=== PATIENT | female | born 1960 | race Caucasian/White ===

== ENCOUNTER 2018-02-15 17:18 | Emergency (ER) | payer BC ==
--- OUTSIDE RECORDS SUMMARY | 2018-02-15 17:21 | XMS REPORT | Summary of Care ---
Author Author [facility] Organization [facility] Address Unknown Phone Unavailable Encounter HQ Isaiahr_joshtray(MAXINE) [id number] Date(s): 12/23/16 - 01/21/17 [facility] Discharge Disposition: Home or Self Care Attending Physician: Wesly Rinaldi MD Vital Signs No data available for this section Problem List No data available for this section Allergies, Adverse Reactions, Alerts No data available for this section Medications No data available for this section Results No data available for this section Immunizations No data available for this section Procedures No data available for this section Social History No data available for this section Assessment and Plan No data available for this section
--- OUTSIDE RECORDS SUMMARY | 2018-02-15 17:21 | XMS REPORT | Summary of Care ---
Author Author [facility] [place] Organization [facility] [place] Address Unknown Phone Unavailable Encounter HQ Encntr_alitray(FIN) [id number] Date(s): 05/01/16 - 05/01/16 [facility] - [place] [address] [place] [phone] Discharge Disposition: Home or Self Care Attending Physician: Denice Landeros MD Vital Signs No data available for [...]
--- OUTSIDE RECORDS SUMMARY | 2018-02-15 17:21 | XMS REPORT | Summary of Care ---
Author Author Marck Bucio, Kerri Organization Unknown Address Unknown Phone Unavailable Care Team Providers Care Retirement Benefits Specialist Name Role Phone ANDRES VILLANUEVA M.D. Unavailable Unavailable TANVI PATEL M.D. 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 Quantity: 50 ANDRES VILLANUEVA M.D. * Start : 12-Nov-2016 Active Diclofenac Sodium 1 % Transdermal Gel APPLY TO LOWER EXTREMITIES, 4 GM OF GEL TO AFFECTED AREA 4 TIMES DAILY. DO NOT APPLY MORE THAN 16 GM DAILY TO ANY ONE AFFECTED JOINT. * Quantity: 3 Refills: 1 ANDRES VILLANUEVA M.D. * Start : 01-Dec-2016 Active 100 GM Tube Diclofenac Sodium 1 % Transdermal Gel APPLY TO LOWER EXTREMITIES, 4 GM OF GEL TO AFFECTED AREA 4 TIMES DAILY. DO NOT APPLY MORE THAN 16 GM DAILY TO ANY ONE AFFECTED JOINT. * Quantity: 1 Refills: 2 TANVI PATEL M.D. * Start : 18-Aug-2017 Active 100 GM Tube Aspirin 81 MG Oral Tablet Delayed Release 1 TABLET PO BID FOR 2 WEEEKS AFTER SURGERY; QTY:28 X TABLET DELAYED RELEASE; QTY :28 Tablet Delayed Release * Quantity: 28 Refills: 0 TANVI PATEL M.D. * Start : 08-Feb-2018 Active Gabapentin 100 MG Oral Capsule TAKE 1 CAPSULE 3 TIMES DAILY. * Quantity: 15 Refills: 0 JORGE Cheung, TANVI * Start : 08-Feb-2018 Active Trezix 320.5-30-16 MG Oral Capsule Trezix 320.5-30-16 MG Oral Capsule take 1-2 capsules every 4-6 hours as needed f or pain * Quantity: 90 Refills: 0 JORGE Cheung, TANVI * Start : 08-Feb-2018 Active Allergies and Adverse Reactions Name Dates Details No Known Drug Allergies (Allergy) Status: Active Procedures Procedure Dates Details MR Knee wo contrast 70457 Date: 20-Jan-2018 Immunization Name Dates Details Immunizations not documented Social History Name Dates Details Unknown if ever smoked Vital Signs Date Test Result Details No Known Vitals to report Results Date Description Value Details Results not documented Plan of Care Name Dates Details Planned Observations Planned Goals not documented Planned Encounters Physical Therapy Referral Appointment; TANVI PATEL M.D. On: 10-Feb-2018 14:00 Interventions Provided Medication Changes* Aspirin 81 MG Oral Tablet Delayed Release - Start * Gabapentin 100 MG Oral Capsule - Start * Trezix 320.5-30-16 MG Oral Capsule - Start Instructions Name Dates Details Instructions not documented Encounters Appointment; ANDRES VILLANUEVA M.D. Encounter Diagnosis: Problem not documented On: 12-Nov-2016 7:30 Appointment; ANDRES VILLANUEVA M.D. Encounter Diagnosis: Problem not documented On: 09-Jan-2017 13:15 Appointment; ANDERS VILLANUEVA M.D. Encounter Diagnosis: Problem not documented On: 23-Jan-2017 7:00 Appointment; ANDRES VILLANUEVA M.D. Encounter Diagnosis: Problem not documented On: 28-Jan-2017 7:00 Appointment; ANDRES VILLANUEVA M.D. Encounter Diagnosis: Problem not documented On: 04-Feb-2017 7:00 Appointment; ANDRES VILLANUEVA M.D. Encounter Diagnosis: Problem not documented On: 22-Jul-2017 7:00 Appointment; ANDRES VILLANUEVA M.D. Encounter Diagnosis: Problem not documented On: 12-Aug-2017 7:00 Appointment; TANVI PATEL M.D. Encounter Diagnosis: Problem not documented On: 18-Aug-2017 13:30 Appointment; TANVI PATEL M.D. Encounter Diagnosis: Problem not documented On: 28-Aug-2017 8:30 Appointment; TANVI PATEL M.D. Encounter Diagnosis: Problem not documented On: 31-Aug-2017 12:30 Appointment; TANVI PATEL M.D. Encounter Diagnosis: Problem not documented On: 07-Sep-2017 12:30 Appointment; TANVI PATEL M.D. Encounter Diagnosis: Problem not documented On: 15-Sep-2017 12:30 Appointment; TANVI PATEL M.D. Encounter Diagnosis: Problem not documented On: 22-Sep-2017 12:30 Appointment; SURG, NURSE Encounter Diagnosis: Problem not documented On: 25-Sep-2017 8:00 Appointment; TANVI PATEL M.D. Encounter Diagnosis: Problem not documented On: 10-Nov-2017 14:15 Appointment; TANVI PATEL M.D. Encounter Diagnosis: Problem not documented On: 10-Feb-2018 14:00
--- OUTSIDE RECORDS SUMMARY | 2018-02-15 17:21 | XMS REPORT | Continuity of Care Document ---
Author Author Rica baltazar Organization Interface Address Unknown Phone Unavailable Problems Problem Status Onset Date Classification Date Reported Comments Source RIGHT KNEE Active 02/09/2018 [facility] ACQUIRED VARUS DEFORMITY RIGHT KNEE, CHR Active 02/01/2018 [facility] M21.161, M25.561 CHRONIC PAIN OF RIGHT K Active 01/19/2018 [facility] M21.161, M25.561 Active 01/19/2018 [facility] M25.561 - PAIN IN RIGHT KNEE Active 07/28/2017 [facility] BILATERAL KNEE OA Active 11/12/2016 [facility] BILATREAL KNEE OA Active 10/12/2016 [facility] M25.562 - PAIN IN LEFT KNEE Active 08/15/2015 [facility] [place] Medications Medication Details Route Status Patient Instructions Ordering Provider Order Date Source Allergies, Adverse Reactions, Alerts Substance Category Reaction Severity Reaction type Status Date Reported Comments Source Immunizations Immunization Date Given Site Status Last Updated Comments Source Results Order Name Results Value Reference Range Date Interpretation Comments Source Knee 1-2 Views unilateral DX Knee 1-2 Views unilateral DX EXAM: XR RIGHT KNEE 2 VIEWS DATE: 02/10/2018 13:02 DIRECTOR OF HUMAN RESOURCES INDICATION: Pain, Trauma - post op TKA COMPARISON: None available TECHNIQUE: Right knee - 2 views FINDINGS: Satisfactory appearance of total right knee arthroplasty with patellar resurfacing noted. No periprosthetic lucency or hardware failure identified. No fracture, periosteal reaction, or erosions identified. Joint alignment is normal. Expected postoperative soft tissue edema and air present anteriorly. Air and fluid present within the suprapatella bursa. Anterior midline skin closure laith noted. IMPRESSION: Satisfactory immediate postoperative appearance of total right knee arthroplasty. 02/10/2018 - - Read by: Albert Botello MD Dictated Date/time: 02/10/18 15:54 Electronically Signed by: Albert Botello MD 02/10/18 15:55 [facility]AL [facility]PORT [facility] DX Bone length scanogram DX EXAM: X-RAY BONE LENGTH SCANOGRAM DATED 01/25/2018 INDICATION: Right knee pain. COMPARISON: Knee x-ray dated 08/16/2015 TECHNIQUE: Frontal AP views of the right femur and lower leg are provided for review. FINDINGS: Minimal degenerative changes involving the inferior medial portion of the right hip joint. Medial knee joint space narrowing. No acute osseous injury. Surrounding soft tissues demonstrate no discrete abnormality. IMPRESSION: Degenerative changes of the right hip and right knee. Please refer to the same day MR knee report for additional details on the right knee. Examination performed per [facility] protocol 01/25/2018 - - This report was dictated by a After School Program Director/Fellow/Physician Inbound Call Center Representative. I have personally reviewed the images as well as the interpretation and agree with the findings. Read by: Moses Peña MD Resident/Fellow/Physician Inbound Call Center Representative: Moses Peña MD Dictated Date/time: 01/25/18 16:15 Electronically Signed by: Emma Ortiz MD 01/26/18 10:07 FINAL REPORT [facility] Knee wo contrast MRI Knee wo contrast MRI EXAM: MR RIGHT KNEE WITHOUT CONTRAST DATE: 01/25/2018 2:13 PM DIRECTOR OF HUMAN RESOURCES INDICATION: - [facility] PROTOCOL COMPARISON: Right knee MR dated 08/05/2017. TECHNIQUE: Multiplanar, multisequence noncontrast imaging of the knee using visionaire protocol. DISCUSSION: There is redemonstration of a near complete versus complete radial tear and maceration involving the body and anterior horn of the medial meniscus with extrusion of meniscal fragment into the medial gutter. There is an associated subchondral cyst formation within the medial aspect of the right tibial plateau and adjacent subchondral marrow related changes within the medial right femoral condyle. Otherwise, there is tricompartmental osteophyte formation. There is a small knee joint effusion which is improved in volume as compared with the reference examination. Mild thickening of the ACL is unchanged. The PCL are intact. Extensor mechanism is also intact. This examination is not optimized to evaluate the cartilage. Surrounding tissues are grossly normal. IMPRESSION: 1. [facility] protocol for surgery planning purposes. 2. Tearing with meniscal maceration involving the body and anterior horn of the medial meniscus. 3. Focal subchondral cystic changes in the medial tibial plateau in the region of meniscal defect are again demonstrated. The degree of surrounding marrow edema within the medial tibial plateau is mildly improved. 4. ACL is irregular and thickened, likely related to chronic injury and scarring. 5. Tricompartmental degenerative changes. 01/25/2018 - - This report was dictated by a After School Program Director/Fellow/Physician Inbound Call Center Representative. I have personally reviewed the images as well as the interpretation and agree with the findings. Read by: Moses Peña MD Resident/Fellow/Physician Inbound Call Center Representative: Moses Peña MD Dictated Date/time: 01/25/18 15:30 Electronically Signed by: Emma Ortiz MD 01/26/18 10:08 FINAL REPORT [facility] wo contrast MRI Knee wo contrast MRI EXAMINATION: MRI of the right knee without contrast HISTORY: M25.561 Pain in right knee; right knee meniscus tear; right knee medial and patellofemoral compartment chondrosis COMPARISON: There are no radiographs available for review. TECHNIQUE: Multiplanar, multisequence magnetic resonance imaging of the right knee is performed with an extremity coil without contrast. FINDINGS: Menisci: --Medial: There is a near complete versus complete radial tear involving the body of the medial meniscus with resultant loss of hoop stress and complete extrusion of the meniscal body within the medial gutter. --Lateral: The anterior horn, body, and posterior horn are intact. Ligaments: The cruciate ligaments are intact. The medial collateral ligament and lateral collateral ligament complex are intact. Extensor mechanism: The extensor mechanism is intact. Muscles: There is normal signal intensity and muscle bulk of the musculature at the knee. Cartilage: Within the medial compartment, there is deep partial thickness to near full-thickness chondrosis involving the weightbearing medial femoral condyle and anterior to medial aspect of the medial tibial plateau with underlying foci of subchondral edema and cyst formation. Within the lateral compartment, there is no focal chondrosis or subchondral marrow edema. Within the patellofemoral compartment, there is mild superficial partial-thickness articular surface irregularity involving the patellar median ridge, medial patellar facet, and medial aspect of the lateral patellar facet near the mid p ole of the patella. There is also a focal area of deep partial thickness chondral fissuring involving the superior aspect of the medial trochlea. Bone: There is focal subchondral cyst formation and irregularity of the articular surface along the medial tibial rim, but no discrete linear hypointense fracture line. There is associated subchondral marrow edema within the medial tibial rim and along the medial femoral condyle. There are no suspicious bone marrow replacing lesions. Soft tissues: There is a small knee effusion without Jin's cyst. IMPRESSION: 1. Near complete versus complete radial tear involving the body of the right knee medial meniscus with resultant loss of hoop stress and complete extrusion of the meniscal body within the medial gutter. 2. Moderate medial and mild patellofemoral compartment, bicompartmental chondrosis of the right knee as described in detail above. 3. Focal subchondral cyst formation and irregularity of the articular surface along the right medial tibial rim, likely secondary to overlying chondrosis and degenerative in etiology. There is no discrete linear hypointense fracture line. 4. Small right knee effusion. 5. Intact right knee cruciate and collateral ligaments. 08/05/2017 - - Read by: Low Wills MD Dictated Date/time: 08/06/17 08:10 Electronically Signed by: Low Wills MD 08/06/17 08:25 FINAL REPORT [facility] Abdomen/Pelvis w/wo IV contrast CT Abdomen/Pelvis w/wo IV contrast CT EXAM: Abdomen/Pelvis w/wo IV contrast CT HISTORY: R10.9 Unspecified abdominal pain COMPARISON: None CT imaging of the abdomen and pelvis was obtained before and after 100 cc intravenous contrast. Oral contrast was administered prior to the study per protocol. Sagittal and coronal reformats were reviewed. DLP 1829 mGy cm. FINDINGS: The lung bases are clear. The liver appears normal without focal lesion. There is no biliary ductal dilation. The gallbladder is surgically absent. The spleen, pancreas, and bilateral adrenal glands are unremarkable. The kidneys enhance symmetrically. No focal parenchymal abnormalities identified. No hydronephrosis is present. Gastric band noted below the diaphragm. No fluid collection is seen. The bowel is nondilated without evidence of inflammation. There is no evidence of appendicitis. There is diverticulosis without evidence of diverticulitis. There is no free air or free fluid. No significant abdominal or pelvic lymphadenopathy is noted. No pelvic mass. The bladder is unremarkable. Moderate discogenic degenerative changes are noted. IMPRESSION: No acute abnormality. 05/01/2016 - - Read by: Steph Cordero MD Dictated Date/time: 05/01/16 16:09 Electronically Signed by: Steph Cordero MD 05/01/16 16:14 FINAL REPORT [facility] Knee 4+ views unilateral DX Knee 4+ views unilateral DX op rad, no report, films only. 08/16/2015 - - Electronically Signed by: Julian Machado 08/21/15 08:00 FINAL REPORT [facility] Balta[facility] Vital Signs Vital Sign Value Date Comments Source Encounters Location Location Details Encounter Type Encounter Number Reason For Visit Attending Provider ADM Date DC Date Status Source [facility] Out[facility] [place] [facility] [id number] José Miguel Flores 08/16/2015 08/17/2015 [facility] Baltazar [facility] [place] [facility] [id number] Denice Landeros 05/01/2016 05/02/2016 [facility] OP Therapy Patients [id number] Wesly Rinaldi 11/19/2016 12/19/2016 [facility] OP Therapy Patients [id number] Wesly Rinaldi 12/23/2016 01/22/2017 [facility] [place] [facility] [id number] Wesly Rinaldi 08/05/2017 08/06/2017 [facility] Procedures Procedure Code Date Perfomer Comments Source
--- OUTSIDE RECORDS SUMMARY | 2018-02-15 17:21 | XMS REPORT | Summary of Care ---
Author Author [facility] Organization [facility] Address Unknown Phone Unavailable Encounter HQ Encntr_alias(FIN) [id number] Date(s): 11/19/16 - 12/18/16 [facility] Discharge Disposition: Home or Self Care Attending [...]
--- OUTSIDE RECORDS SUMMARY | 2018-02-15 17:21 | XMS REPORT | Summary of Care ---
Author Author [facility] [place] Organization [facility] [place] Address Unknown Phone Unavailable Encounter HQ Encntr_alias(FIN) [id number] Date(s): 08/05/17 - 08/05/17 [facility] [place] [address] [place] [phone] Discharge Disposition: Home or Self Care Attending [...]
--- OUTSIDE RECORDS SUMMARY | 2018-02-15 17:21 | XMS REPORT | Summary of Care ---
Author Author [facility] Outpatient Imaging [facility] [place] Address Unknown Phone Unavailable Encounter HQ Encntr_alias(FIN) [id number] Date(s): 08/16/15 - 08/16/15 [facility] Outpatient Imaging [place] [address] [place] [phone] Discharge Disposition: Home Attending Physician: José Miguel Flores MD Vital Signs No data available for [...]
--- OUTSIDE RECORDS SUMMARY | 2018-02-15 17:21 | XMS REPORT | Clinical Summary ---
Author Author [facility] Address Unknown Phone Unavailable Care Team Providers Care Spot Worker Name Role Phone Sharpless PCP Allergies Not on File Medications Not on file Active Problems Not on file Social History Date Tobacco Use Types Packs/Day Years Used Never Assessed Sex Assigned at Date Recorded Not on file Industry Job Start Date Occupation Not on file Not on file Not on file Travel End Travel History Travel Start No recent travel history available. Last Filed Vital Signs Not on file Plan of Treatment Not on file Results Not on fileafter 02/14/2017 Insurance Payer Benefit Subscriber ID Type Phone Address Plan / Group [employer]BS PPO xxxxxxxxxxxx PPO [phone] [id number] [place] [address] CHOICE
--- NOTE | 2018-02-15 18:16 | NUR ---
CUSTOMER EXPERIENCE PROFESSIONAL CALLED FOR NEEDED VENOUS DOPPLER OF RIGHT LEG
--- NOTE | 2018-02-15 19:10 | NUR ---
weatherization technician in room at this time.
== END 2018-02-15 21:55 | disposition home or self-care (01) ==
LOC: ER 17:18
DX: M79.661 Pain in right lower leg (principal); R60.0 Localized edema; Z96.641 Presence of right artificial hip joint
CPT/HCPCS: 93971; 99284